=== PATIENT | male | born 1990 | race Caucasian/White ===

== ENCOUNTER 2016-09-25 18:40 | Emergency (ER) | payer SELFPAY ==
--- NOTE | 2016-09-25 19:03 | ERRECORD ---
[facility] EMERGENCY RECORD HPI URI (18:54 [facility]) CHIEF COMPLAINT: Patient presents for evaluation of sore throat, Patient presents for evaluation of cough. HISTORIAN: History provided by patient, 26M presents to the ED complaining of 24 hours of sore throat, cough, fever, and generalized body aches and pain. Denies headache, denies chest pain, denies abdominal pain. LOCATION: Symptoms are generalized. TIME COURSE: Gradual onset of symptoms, Symptoms are worsening, are constant. ASSOCIATED WITH: Associated with chills, Associated with fever. RELIEVED BY: Patient's condition relieved by nothing because patient has not tried anything for relief. ROS (18:56 [facility]) CONSTITUTIONAL: Historian reports chills, reports fatigue, reports fever, denies weakness. ENT: Historian reports sore throat. CARDIOVASCULAR: Negative cardiovascular review of systems, Historian denies chest pain, denies palpitations. RESPIRATORY: Historian reports cough, reports shortness of breath. GI: Negative gastrointestinal review of systems, Historian denies abdominal pain, denies constipation, denies diarrhea, denies nausea, denies vomiting. MUSCULOSKELETAL: Negative musculoskeletal review of systems, Historian denies back pain, denies fall, denies injury, denies neck pain. SKIN: Negative skin review of systems, Historian denies rash, denies skin changes. NEUROLOGIC: Negative neurologic review of systems, Historian denies headache. PAST MEDICAL HISTORY (18:47 [facility]) MEDICAL HISTORY: No past medical history, Flu vaccine not up to date, Tetanus not up to date, Pneumococcal vaccine not up to date, No past medical history. MALE SURGICAL HISTORY: Nasal SX, Surgical history of tonsillectomy. . PSYCHIATRIC HISTORY: No previous psychiatric history,. SOCIAL HISTORY: Patient drinks socially, rarely, Patient denies drug use, Patient has no smoking history, Lives at home, with family, Patient denies alcohol use, Patient denies drug use, Patient currently uses tobacco, chews tobacco. KNOWN ALLERGIES No Known Drug Allergies CURRENT MEDICATIONS (18:45 [facility]) None &a-1R&a+25V*p+0X*s9834G*c202B*c15G*c2P*p-0X&a-25V&a+1R Name: Samir Hudson : 1990 [facility] [place] MedRec: [id number] AcctNum: [id number] Prepared: Nina Sep 25, 2016 19:00 by Interface Page 1 of 3 pMD [facility] EMERGENCY RECORD VITAL SIGNS (18:45 [facility]) VITAL SIGNS: BP: 115/82, Pulse: 102, Resp: 18, Temp: 99.7 (Oral), Pain: 8, O2 sat: 100 on Room Air, Time: 09/25/2016 18:45. PHYSICAL EXAM (18:56 [facility]) CONSTITUTIONAL: Vital signs reviewed, Patient afebrile, Pulse, tachycardic, Blood pressure normal, Respiratory rate normal, Patient appears non toxic, Patient appears pain free, Patient alert and oriented to person, place and time. NECK: Neck exam normal, Neck exam included findings of normal range of motion, Trachea midline, no meningeal signs, no cervical adenopathy, no tenderness. RESPIRATORY CHEST: Respiratory and chest exam normal, Respiratory exam included findings of no respiratory distress, Breath sounds clear. CARDIOVASCULAR: Cardiovascular assessment normal, Cardiovascular exam included findings of heart rate regular rate and rhythm, Heart sounds normal. ABDOMEN MALE: Abdominal exam included findings of abdomen nontender, Bowel sounds normal, no distension, no mass, no pulsatile masses, no peritoneal signs, no rigidity, no guarding, no rebound, Rovsing's sign absent. BACK: Back exam normal, Back exam included findings of normal inspection, range of motion normal, no tenderness. NEURO: Neuro exam normal, Neuro exam findings include patient oriented to person, place and time, Speech normal, Gait normal. SKIN: Skin exam normal, Skin exam included findings of skin warm, dry, and normal in color, no rash. [facility]57 [facility] TEXT: Patient presented with signs and symptoms consistent with viral syndrome. well appearing, non-toxic patient without evidence of concerning bacterial illness such as meningitis or pneumonia that would require further workup or investigation. Tolerating oral intake without difficulty. Appropriate for outpatient management with oral fluids and antipyretics. Needs follow up with primary physician in the next 2-3 days for re-evaluation. PATIENT STATUS: Patient has improved since arrival to emergency department. PATIENT PLAN: The patient will be discharged, The patient will follow up with primary care physician. PROBLEM LIST No recorded problems DIAGNOSIS (18:54 [facility]) FINAL: PRIMARY: Viral infection. PRESCRIPTION &a-1R&a+25V*p+0X*o3806H*c202B*c15G*c2P*p-0X&a-25V&a+1R Name: Samir Hudson Alba : 1990 [facility] [place] MedRec: [id number] AcctNum: [id number] Prepared: Nina Sep 25, 2016 19:00 by Interface Page 2 of 3 pMD [facility] EMERGENCY RECORD No recorded prescriptions DISPOSITION (18:53 [facility]) PATIENT: Disposition Type: Discharge, Disposition: *Discharge Home. Baez: TYE=MD Melissa, Gil [facility]=JACKIE Lindsay, Michelle &a-1R&a+25V*p+0X*x6089U*c202B*c15G*c2P*p-0X&a-25V&a+1R Name: Samir Hudson : 1990 6 MedRec: [id number] AcctNum: [id number] Prepared: Nina Sep 25, 2016 19:00 by Interface Page 3 of 3 pMD MTDD
--- NOTE | 2016-09-25 19:16 | PICIS ---
[facility] EMERGENCY RECORD TRIAGE (18:45 [facility]) TRIAGE NOTES: Fever, feeling disorientated, feeling fatigue, SOB. (18:45 [facility]) PATIENT: NAME: Samir Hudson, AGE: 26, GENDER: male, : Joie 1990, TIME OF GREET: Sun Sep 25, 2016 18:41, PREFERRED LANGUAGE: [place] Islander, ETHNICITY: Not or , ECODE BILLING MAP: [facility], SSN: [id number], Zip Code: [address], KG WEIGHT: 77.11, , , PERSON ID: [id number], PAYMENT: SJ[employer] Self Pay, PCP: none. (18:45 [facility]) PHONE: . (18:49) COMPLAINT: Flu like symptoms. (18:45 [facility]) ADMISSION: URGENCY: 4 Non Urgent, ADMISSION SOURCE: Home, TRANSPORT: CAR, BED: ER -02. (18:45 [facility]) ASSESSMENT: Assessment: A&OX4. RR MELONY AND UNLABORED., Symptoms began yesterday. (18:47 [facility]) PAIN: Patient complains of pain described as, Location GENERALIZED. (18:47 [facility]) IMMUNIZATIONS: Flu vaccine not up to date, Tetanus immunization up to date. (18:47 [facility]) TRIAGE SCREENING: Patient denies suicidal ideation, Patient denies presence of domestic violence. (18:47 [facility]) PROVIDERS: TRIAGE NURSE: Michelle Lindsay RN. (18:45 [facility]) VITAL SIGNS: BP 115/82, Pulse 102, Resp 18, Temp 99.7, (Oral), Pain 8, O2 Sat 100, on Room Air, Time 09/25/2016 18:45. (18:45 [facility]) PREVIOUS VISIT ALLERGIES: No Known Drug Allergies. (18:45 [facility]) No Known Drug Allergies. (18:47 [facility]) KNOWN ALLERGIES No Known Drug Allergies CURRENT MEDICATIONS (18:45 [facility]) None VITAL SIGNS (18:45 [facility]) VITAL SIGNS: BP: 115/82, Pulse: 102, Resp: 18, Temp: 99.7 (Oral), Pain: 8, O2 sat: 100 on Room Air, Time: 09/25/2016 18:45. NURSING ASSESSMENT: ENT (18:48 [facility]) CONSTITUTIONAL: Patient arrives ambulatory, Gait steady, History obtained from patient, Patient appears comfortable, Patient cooperative, Patient alert, Oriented to person, place and time, Skin warm, Skin dry, Skin normal in color, Mucous membranes pink, Mucous membranes moist, Patient is well-groomed, Patient complains of Fever, Fever, fatigue, dizziness and bodyaches started 1 day ago, Cough. PAIN: aching pain, generalized, on a scale 0-10 patient rates pain as 8. ENT: Ear assessment findings include ear normal to inspection, Nasal assessment findings include nose normal to inspection, Sinuses &a-1R&a+25V*p+0X*b4218P*c202B*c15G*c2P*p-0X&a-25V&a+1R Name: Samir Hudson : 1990 M26 MedRec: [id number] AcctNum: [id number] Prepared: Nina Sep 25, 2016 19:14 by Interface Page 1 of 4 pMD [facility] EMERGENCY RECORD normal, Nasal mucosa normal, Congestion, bilaterally, Mouth and throat assessment findings include mouth inspection normal, Uvula normal, Tonsils normal, Mucous membranes pink, and moist, Able to swallow, Speech normal. RESPIRATORY/CHEST: Breath sounds clear, Respiratory assessment findings include respiratory effort, tachypneic, Respirations regular, Conversing normally, Neck and chest exam findings include trachea midline, Chest expansion equal, Chest movement symmetrical, no signs of distress, Associated with cough, loose, Associated with fever, Maximum temperature 103. NOTES: Patient tolerated procedure well. NURSING PROCEDURE: DISCHARGE NOTE (19:02 [facility]) DISCHARGE: Patient discharged to home, ambulating without assistance, driving self, unaccompanied, Summary of Care printed/ provided, Patient requested and was provided an electronic copy of Discharge Instructions, Transition record given to patient, Discharge instructions given to patient, Simple or moderate discharge teaching performed, by [facility], alternate Tylenol and Ibuprofen for pain and fever, lots fluids and rest. Work note given showing return to work date of 09/26/2016 with no restrictions, Medication reconciliation form given, Above person(s) verbalized understanding of discharge instructions and follow-up care, Patient treated and evaluated by physician. BELONGINGS: Belongings and valuables with patient at time of discharge include:, Belongings remain with patient, Valuables remain with patient. SAFETY: Side rails up, Cart/Stretcher in lowest position, Call light within reach, Hospital ID band on, Patient in view of the nursing station. HPI URI (18:54 [facility]) CHIEF COMPLAINT: Patient presents for evaluation of sore throat, Patient presents for evaluation of cough. HISTORIAN: History provided by patient, 26M presents to the ED complaining of 24 hours of sore throat, cough, fever, and generalized body aches and pain. Denies headache, denies chest pain, denies abdominal pain. LOCATION: Symptoms are generalized. TIME COURSE: Gradual onset of symptoms, Symptoms are worsening, are constant. ASSOCIATED WITH: Associated with chills, Associated with fever. RELIEVED BY: Patient's condition relieved by nothing because patient has not tried anything for relief. [facility] CONSTITUTIONAL: Historian reports chills, reports fatigue, reports fever, denies weakness. ENT: Historian reports sore throat. &a-1R&a+25V*p+0X*i3424R*c202B*c15G*c2P*p-0X&a-25V&a+1R Name: Samir Hudson : 1990 M26 MedRec: [id number] AcctNum: [id number] Prepared: Nina Sep 25, 2016 19:14 by Interface Page 2 of 4 pMD [facility] EMERGENCY RECORD CARDIOVASCULAR: Negative cardiovascular review of systems, Historian denies chest pain, denies palpitations. RESPIRATORY: Historian reports cough, reports shortness of breath. GI: Negative gastrointestinal review of systems, Historian denies abdominal pain, denies constipation, denies diarrhea, denies nausea, denies vomiting. MUSCULOSKELETAL: Negative musculoskeletal review of systems, Historian denies back pain, denies fall, denies injury, denies neck pain. SKIN: Negative skin review of systems, Historian denies rash, denies skin changes. NEUROLOGIC: Negative neurologic review of systems, Historian denies headache. PAST MEDICAL HISTORY (18:47 [facility]) MEDICAL HISTORY: No past medical history, Flu vaccine not up to date, Tetanus not up to date, Pneumococcal vaccine not up to date, No past medical history. MALE SURGICAL HISTORY: Nasal SX, Surgical history of tonsillectomy. . PSYCHIATRIC HISTORY: No previous psychiatric history,. SOCIAL HISTORY: Patient drinks socially, rarely, Patient denies drug use, Patient has no smoking history, Lives at home, with family, Patient denies alcohol use, Patient denies drug use, Patient currently uses tobacco, chews tobacco. PHYSICAL EXAM (18:56 [facility] CONSTITUTIONAL: Vital signs reviewed, Patient afebrile, Pulse, tachycardic, Blood pressure normal, Respiratory rate normal, Patient appears non toxic, Patient appears pain free, Patient alert and oriented to person, place and time. NECK: Neck exam normal, Neck exam included findings of normal range of motion, Trachea midline, no meningeal signs, no cervical adenopathy, no tenderness. RESPIRATORY CHEST: Respiratory and chest exam normal, Respiratory exam included findings of no respiratory distress, Breath sounds clear. CARDIOVASCULAR: Cardiovascular assessment normal, Cardiovascular exam included findings of heart rate regular rate and rhythm, Heart sounds normal. ABDOMEN MALE: Abdominal exam included findings of abdomen nontender, Bowel sounds normal, no distension, no mass, no pulsatile masses, no peritoneal signs, no rigidity, no guarding, no rebound, Rovsing's sign absent. BACK: Back exam normal, Back exam included findings of normal inspection, range of motion normal, no tenderness. NEURO: Neuro exam normal, Neuro exam findings include patient oriented to person, place and time, Speech normal, Gait normal. SKIN: Skin exam normal, Skin exam included findings of skin warm, &a-1R&a+25V*p+0X*e7792A*c202B*c15G*c2P*p-0X&a-25V&a+1R Name: Samir Hudson Alba : 1990 M26 MedRec: [id number] AcctNum: [id number] Prepared: Nina Sep 25, 2016 19:14 by Interface Page 3 of 4 pMD [facility] EMERGENCY RECORD dry, and normal in color, no rash. EVENTS TRANSFER: Triage to Emergency Emergency Room -02. (Nina Sep 25, 2016 18:45 [facility]) Removed from Emergency Emergency Room -02. (19:10 [facility]) DOCTOR NOTES (18:57 [facility]) TEXT: Patient presented with signs and symptoms consistent with viral syndrome. well appearing, non-toxic patient without evidence of concerning bacterial illness such as meningitis or pneumonia that would require further workup or investigation. Tolerating oral intake without difficulty. Appropriate for outpatient management with oral fluids and antipyretics. Needs follow up with primary physician in the next 2-3 days for re-evaluation. PATIENT STATUS: Patient has improved since arrival to emergency department. PATIENT PLAN: The patient will be discharged, The patient will follow up with primary care physician. PROBLEM LIST No recorded problems [facility] FINAL: PRIMARY: Viral infection. DISPOSITION PATIENT: Disposition Type: Discharge, Disposition: *Discharge Home. (18:53 [facility] Patient left the department. (19:10 [facility]) INSTRUCTION (18:54 [facility]) DISCHARGE: URI, VIRAL, NO ABX (ADULT). SPECIAL: Lots of fluids, Tylenol or Ibuprofen for fever. Return to the ED if you're not feeling better in 2-3 days. PRESCRIPTION No recorded prescriptions IMAGING *SUPPLY CHARGE SHEET: Image captured from scanner. (19:06 [facility]) *DISCHARGE INSTRUCTIONS RECEIPT: Image captured from scanner. (19:07 [facility]) ADMIN (18:57 [facility]) DIGITAL SIGNATURE: MD Torres Jason. Baez: MIGUEL ÁNGEL=MD Torres Jason KMOR=JACKIE Lindsay, Michelle MCGUIRE=JACKIE Alvarez, [facility] PEÑA=JACKIE Quigley, Lexy &a-1R&a+25V*p+0X*w6773G*c202B*c15G*c2P*p-0X&a-25V&a+1R Name: Samir Hudson : 1990 M26 MedRec: [id number] AcctNum: [id number] Prepared: Nina Sep 25, 2016 19:14 by Interface Page 4 of 4 pMD MTDD
== END 2016-09-25 19:02 | disposition home or self-care (01) ==
LOC: BURERS 18:40
DX: B34.9 Viral infection, unspecified (principal); F17.220 Nicotine dependence, chewing tobacco, uncomplicated
CPT/HCPCS: 99283